=== PATIENT | male | born 1965 | race Caucasian/White ===

== ENCOUNTER 2018-09-01 10:20 | Inpatient (IN) | payer OTHER, MEDICAID ==
[~2018-09-01] VITALS: Ht 160 cm; Wt 71.7 kg
[2018-09-01 11:34] LABS: BASOPHILS % 0.6 % (0.0-2.0); EOSINOPHILS % 0.4 % (0.0-5.0); HEMOGLOBIN. 13.9 g/dL (14.0-18.0); LYMPHOCYTES % 14.9 % (20.0-50.0); MEAN CORPUSCULAR HEMOGLOBIN 27.7 pg (28.0-32.0); MEAN CORPUSCULAR VOLUME 82.2 fL (80.0-94.0); MEAN PLATELET VOLUME 9.3 fl (7.4-10.4); MONOCYTES % 5.3 % (2.0-8.0); NEUTROPHILS % 78.8 % (40.0-76.0); PLATELET 192 x1000/uL (130-400); RED BLOOD CELL COUNT 4.99 mill/uL (4.7-6.1); RED CELL DISTRIBUTION WIDTH 13.1 % (11.6-14.6)
[2018-09-01 11:38] LABS: INR 0.9; PARTIAL THROMBOPLASTIN TIME 26.2 sec (23.4-31.0); PROTHROMBIN TIME 9.4 sec (9.6-11.0)
[2018-09-01 11:39] LABS: CHLORIDE 101 mEq/L (98-107)
[2018-09-01 11:43] LABS: ETHANOL BLOOD < 10 mg/dL
[2018-09-01 11:46] LABS: LDL CHOLESTEROL 203 mg/dL (5-100)
[2018-09-01 11:48] LABS: CREATINE KINASE 226 IU/L (39-308)
[2018-09-01] MEDS ORDERED: ASPIRIN 325MG EC TABLET PO ONE (12:15)
[2018-09-01] MEDS: SODIUM CHLORIDE 0.45% 1,000 ML IV SCH ×4 (12:18→23:34)
[2018-09-01] MEDS ORDERED: ACETAMINOPHEN 325MG TABLET PO PRN (12:30)
[2018-09-01] MEDS ORDERED: HYDROCODONE/ACETAMINOPHEN 5/325MG TABLET PO PRN (12:30)
[2018-09-01] MEDS ORDERED: MAGNESIUM/ALUMINUM HYDROXIDE/SIMETHICONE 30ML UDC PO PRN (12:30)
[2018-09-01] MEDS ORDERED: DIPHENHYDRAMINE 50MG/ML VIAL IV PRN (12:30)
[2018-09-01] MEDS ORDERED: GUAIFENESIN 200MG/10ML SUGAR FREE UDC PO PRN (12:30)
[2018-09-01] MEDS ORDERED: HYDROMORPHONE HCL/PF 2MG/ML CPJ IV PRN (12:30)
[2018-09-01] MEDS ORDERED: IPRATROPIUM/ALBUTEROL 0.5-3(2.5)MG/3ML NEB INH PRN (12:30)
[2018-09-01] MEDS ORDERED: DOCUSATE SODIUM 100MG CAPSULE PO PRN (12:30)
[2018-09-01] MEDS ORDERED: ONDANSETRON HCL 4MG/2ML INJ IV PRN (12:30)
[2018-09-01] MEDS ORDERED: NA PHOS,M-B/NA PHOS,DI-BA ENEMA 118ML PR PRN (12:30)
[2018-09-01 12:53] LABS: BG BASE EXCESS -0.3 mmol/L (-2.0-2.0); BG CARBOXYHEMOGLOBIN 1.1 % (0.5-1.5); BG DEOXYHEMOGLOBIN 3.8 % (0.0-5.0); BG FRACTION INSPIRED OXYGEN 21; BG HCO3 ACT 23.9 mmol/L (22.0-26.0); BG METHEMOGLOBIN 0.1 % (0.0-1.5); BG OXYGEN SATURATION 96.2 % (92.0-98.5); BG PCO2 37.9 mmHg (35.0-45.0); BG PH 7.418 (7.350-7.450); BG PO2 81.1 mmHg (75.0-100.0); BG SAMPLE SITE RIGHT RADIAL; BG TOTAL HEMOGLOBIN 14.3 g/dL (12.0-18.0); BG VENT MODE ROOM AIR
[2018-09-01] MEDS ORDERED: SODIUM CHLORIDE 0.9% 1,000 ML IV ONE (13:24)
[2018-09-01] MEDS ORDERED: INSULIN REGULAR (HUMULIN R) 300UNITS/3ML IV ONE (13:30)
[2018-09-01] MEDS ORDERED: DEXTROSE 50% WATER 50ML SYRINGE IV PRN (15:00)
[2018-09-01] MEDS: BLOOD SUGAR DIAGNOSTIC STRIP TEST SCH ×2 (17:58→21:00)
[2018-09-01] MEDS ORDERED: LEVOFLOXACIN 500MG PREMIX 100 ML IV SCH (18:30)
[2018-09-01] MEDS ORDERED: ENOXAPARIN 40MG/0.4ML SYR SUBCUT NR (18:30)
[2018-09-01 22:00] VITALS: BP 159/95
[2018-09-01 23:19] LABS: CHLORIDE 104 mEq/L (98-107)
[2018-09-01] MEDS: INSULIN LISPRO 100 UNITS/ML SUBCUT SCH (23:36)
[2018-09-02] VITALS (14 sets, daily range): BP systolic 116–161; BP diastolic 74–97
[2018-09-02 03:16] LABS: CLARITY URINE CLEAR (CLEAR); COLOR URINE YELLOW (YELLOW); KETONES URINE NEGATIVE (NEGATIVE); LEUKOCYTE ESTERASE URINE NEGATIVE (NEGATIVE); NITRITE URINE NEGATIVE (NEGATIVE); OCCULT BLOOD URINE TRACE (NEGATIVE); PH URINE 6.5 (4.5-8.0); PROTEIN URINE 3+ (NEGATIVE); SPECIFIC GRAVITY URINE 1.023 (1.005-1.030); UROBILINOGEN URINE 0.2 E.U./dL (0.2-1.0)
[2018-09-02 03:33] LABS: *AMPHETAMINES SCREEN URINE NEGATIVE (NEGATIVE); *BARBITURATES SCREEN URINE NEGATIVE (NEGATIVE); *BENZODIAZEPINES SCREEN URINE NEGATIVE (NEGATIVE); *COCAINE SCREEN URINE NEGATIVE (NEGATIVE)
[2018-09-02 03:34] LABS: CANNABINOID URINE SCREEN NEGATIVE (NEGATIVE); METHADONE URINE SCREEN NEGATIVE (NEGATIVE); OPIATES URINE SCREEN NEGATIVE (NEGATIVE); PHENCYCLIDINE URINE SCREEN NEGATIVE (NEGATIVE)
[2018-09-02 06:47] LABS: BASOPHILS % 0.7 % (0.0-2.0); EOSINOPHILS % 1.7 % (0.0-5.0); HEMATOCRIT. 40.5 % (42.0-52.0); HEMOGLOBIN. 13.8 g/dL (14.0-18.0); LYMPHOCYTES % 21.5 % (20.0-50.0); MEAN CORPUSCULAR HEMOGLOBIN 28.1 pg (28.0-32.0); MEAN CORPUSCULAR VOLUME 82.2 fL (80.0-94.0); MEAN PLATELET VOLUME 9.4 fl (7.4-10.4); MONOCYTES % 6.7 % (2.0-8.0); NEUTROPHILS % 69.4 % (40.0-76.0); PLATELET 191 x1000/uL (130-400); RED BLOOD CELL COUNT 4.92 mill/uL (4.7-6.1); RED CELL DISTRIBUTION WIDTH 13.4 % (11.6-14.6)
[2018-09-02 07:17] LABS: CHLORIDE 105 mEq/L (98-107)
[2018-09-02 07:26] LABS: T4 FREE 1.05 ng/dL (0.76-1.46)
[2018-09-02 07:28] LABS: HDL CHOLESTEROL 37 mg/dL (40-59)
[2018-09-02 07:29] LABS: LDL CHOLESTEROL 207 mg/dL (5-100)
[2018-09-02] MEDS: ASPIRIN 81MG EC TABLET PO SCH (08:59)
[2018-09-02] MEDS: BLOOD SUGAR DIAGNOSTIC STRIP TEST SCH ×4 (10:30→21:38)
[2018-09-02] MEDS: INSULIN LISPRO 100 UNITS/ML SUBCUT SCH ×4 (11:02→22:20)
[2018-09-02 11:49] LABS: T4 FREE 1.06 ng/dL (0.76-1.46)
[2018-09-02] MEDS: CLONIDINE 0.1MG TABLET PO PRN (14:15)
[2018-09-02] MEDS: SODIUM CHLORIDE 0.45% 1,000 ML IV SCH ×2 (16:08→21:40)
[2018-09-02 17:56] LABS: CREATINE KINASE 146 IU/L (39-308)
[2018-09-02 17:58] LABS: CREATINE KINASE MB FRACTION 2.7 ng/mL (0.5-3.6)
[2018-09-02] MEDS: ENOXAPARIN 40MG/0.4ML SYR SUBCUT SCH (18:46)
[2018-09-02] MEDS: ATORVASTATIN CALCIUM 20MG TABLET PO SCH (21:40)
[2018-09-03] VITALS (15 sets, daily range): BP systolic 117–165; BP diastolic 73–94
[2018-09-03] MEDS: LEVOFLOXACIN 500MG PREMIX 100 ML IV SCH (00:57)
[2018-09-03 01:58] LABS: CREATINE KINASE 128 IU/L (39-308)
[2018-09-03] MEDS: ASPIRIN 81MG EC TABLET PO SCH (08:05)
[2018-09-03] MEDS: BLOOD SUGAR DIAGNOSTIC STRIP TEST SCH ×4 (08:10→21:16)
[2018-09-03] MEDS: INSULIN LISPRO 100 UNITS/ML SUBCUT SCH ×4 (08:39→21:17)
[2018-09-03 09:48] LABS: CREATINE KINASE 132 IU/L (39-308); CREATINE KINASE MB FRACTION 2.3 ng/mL (0.5-3.6)
[2018-09-03] MEDS: ENOXAPARIN 40MG/0.4ML SYR SUBCUT SCH (18:01)
[2018-09-03] MEDS: CLONIDINE 0.1MG TABLET PO PRN (18:11)
[2018-09-03] MEDS: SODIUM CHLORIDE 0.45% 1,000 ML IV SCH (19:11)
[2018-09-03] MEDS: LORAZEPAM 2MG/ML CPJ IV PRN (20:09)
[2018-09-03] MEDS: ATORVASTATIN CALCIUM 20MG TABLET PO SCH (20:09)
[2018-09-03] MEDS ORDERED: ATORVASTATIN CALCIUM 20MG TABLET PO NR (21:00)
[2018-09-03] MEDS ORDERED: ATORVASTATIN CALCIUM 20MG TABLET PO SCH (21:00)
[2018-09-04] VITALS (9 sets, daily range): BP systolic 122–171; BP diastolic 74–92
[2018-09-04] MEDS: LEVOFLOXACIN 500MG PREMIX 100 ML IV SCH (00:25)
[2018-09-04 06:26] LABS: BASOPHILS % 0.7 % (0.0-2.0); HEMATOCRIT. 40.1 % (42.0-52.0); HEMOGLOBIN. 13.3 g/dL (14.0-18.0); LYMPHOCYTES % 30.8 % (20.0-50.0); MEAN CORPUSCULAR HEMOGLOBIN 27.3 pg (28.0-32.0); MEAN CORPUSCULAR VOLUME 82.5 fL (80.0-94.0); MEAN PLATELET VOLUME 9.4 fl (7.4-10.4); MONOCYTES % 8.2 % (2.0-8.0); NEUTROPHILS % 58.3 % (40.0-76.0); PLATELET 182 x1000/uL (130-400); RED BLOOD CELL COUNT 4.86 mill/uL (4.7-6.1); RED CELL DISTRIBUTION WIDTH 13.2 % (11.6-14.6)
[2018-09-04 06:29] LABS: CHLORIDE 105 mEq/L (98-107)
[2018-09-04] MEDS: ASPIRIN 81MG EC TABLET PO SCH (08:05)
[2018-09-04] MEDS: CLONIDINE 0.1MG TABLET PO PRN (08:06)
[2018-09-04] MEDS: CLOPIDOGREL 75MG TABLET PO SCH (08:06)
[2018-09-04] MEDS: BLOOD SUGAR DIAGNOSTIC STRIP TEST SCH ×4 (08:10→20:46)
[2018-09-04] MEDS: INSULIN LISPRO 100 UNITS/ML SUBCUT SCH ×4 (08:10→20:55)
[2018-09-04] MEDS: SODIUM CHLORIDE 0.45% 1,000 ML IV SCH (12:31)
[2018-09-04] MEDS: ENOXAPARIN 40MG/0.4ML SYR SUBCUT SCH (17:43)
[2018-09-04] MEDS: ATORVASTATIN CALCIUM 20MG TABLET PO SCH (20:46)
[2018-09-04] MEDS: LEVOFLOXACIN 500MG TABLET PO SCH (22:56)
[2018-09-04] MEDS: LORAZEPAM 2MG/ML CPJ IV PRN (22:56)
[2018-09-05] VITALS (8 sets, daily range): BP systolic 140–181; BP diastolic 82–99
[2018-09-05] MEDS: CLONIDINE 0.1MG TABLET PO PRN ×3 (04:15→22:23)
[2018-09-05 06:53] LABS: BASOPHILS % 0.8 % (0.0-2.0); EOSINOPHILS % 1.9 % (0.0-5.0); HEMATOCRIT. 40.4 % (42.0-52.0); HEMOGLOBIN. 13.9 g/dL (14.0-18.0); MEAN CORPUSCULAR HEMOGLOBIN 28.1 pg (28.0-32.0); MEAN CORPUSCULAR VOLUME 81.5 fL (80.0-94.0); MEAN PLATELET VOLUME 9.1 fl (7.4-10.4); MONOCYTES % 7.4 % (2.0-8.0); NEUTROPHILS % 59.9 % (40.0-76.0); PLATELET 174 x1000/uL (130-400); RED BLOOD CELL COUNT 4.95 mill/uL (4.7-6.1); RED CELL DISTRIBUTION WIDTH 13.4 % (11.6-14.6)
[2018-09-05 07:17] LABS: CHLORIDE 107 mEq/L (98-107)
[2018-09-05] MEDS: BLOOD SUGAR DIAGNOSTIC STRIP TEST SCH ×4 (08:12→21:14)
[2018-09-05] MEDS: CLOPIDOGREL 75MG TABLET PO SCH (08:37)
[2018-09-05] MEDS: ASPIRIN 81MG EC TABLET PO SCH (08:37)
[2018-09-05] MEDS: INSULIN LISPRO 100 UNITS/ML SUBCUT SCH ×4 (08:38→21:17)
[2018-09-05] MEDS: SODIUM CHLORIDE 0.45% 1,000 ML IV SCH (08:42)
[2018-09-05] MEDS: ENOXAPARIN 40MG/0.4ML SYR SUBCUT SCH (20:13)
[2018-09-05] MEDS: ATORVASTATIN CALCIUM 20MG TABLET PO SCH (20:14)
[2018-09-05] MEDS: LEVOFLOXACIN 500MG TABLET PO SCH (22:17)
[2018-09-06] VITALS: BP 157/95
[2018-09-06 04:00] VITALS: BP 163/95
[2018-09-06 05:51] LABS: BASOPHILS % 0.9 % (0.0-2.0); EOSINOPHILS % 1.5 % (0.0-5.0); HEMATOCRIT. 42.9 % (42.0-52.0); HEMOGLOBIN. 14.5 g/dL (14.0-18.0); LYMPHOCYTES % 29.5 % (20.0-50.0); MEAN CORPUSCULAR HEMOGLOBIN 27.9 pg (28.0-32.0); MEAN CORPUSCULAR VOLUME 82.5 fL (80.0-94.0); MEAN PLATELET VOLUME 9.4 fl (7.4-10.4); MONOCYTES % 7.9 % (2.0-8.0); NEUTROPHILS % 60.2 % (40.0-76.0); PLATELET 190 x1000/uL (130-400); RED CELL DISTRIBUTION WIDTH 13.5 % (11.6-14.6)
[2018-09-06 06:12] LABS: CHLORIDE 106 mEq/L (98-107)
[2018-09-06] MEDS: BLOOD SUGAR DIAGNOSTIC STRIP TEST SCH ×4 (07:59→20:47)
[2018-09-06 08:00] VITALS: BP 158/92
[2018-09-06] MEDS: ASPIRIN 81MG EC TABLET PO SCH (08:26)
[2018-09-06] MEDS: CLOPIDOGREL 75MG TABLET PO SCH (08:26)
[2018-09-06] MEDS: INSULIN LISPRO 100 UNITS/ML SUBCUT SCH ×4 (08:26→20:47)
[2018-09-06] MEDS: CLONIDINE 0.1MG TABLET PO PRN ×2 (08:26→18:10)
[2018-09-06 12:04] VITALS: BP 142/86
[2018-09-06 16:00] VITALS: BP 150/84
[2018-09-06] MEDS: ENOXAPARIN 40MG/0.4ML SYR SUBCUT SCH (18:00)
[2018-09-06 20:00] VITALS: BP 144/84
[2018-09-06] MEDS: ATORVASTATIN CALCIUM 20MG TABLET PO SCH (20:46)
[2018-09-06] MEDS: LEVOFLOXACIN 500MG TABLET PO SCH (22:14)
[2018-09-07] VITALS (12 sets, daily range): BP systolic 112–157; BP diastolic 48–80
[2018-09-07] MEDS: BLOOD SUGAR DIAGNOSTIC STRIP TEST SCH ×4 (07:58→22:48)
[2018-09-07] MEDS: ASPIRIN 81MG EC TABLET PO SCH (08:22)
[2018-09-07] MEDS: CLOPIDOGREL 75MG TABLET PO SCH (08:22)
[2018-09-07] MEDS: INSULIN LISPRO 100 UNITS/ML SUBCUT SCH ×4 (08:23→22:46)
[2018-09-07] MEDS: ENOXAPARIN 40MG/0.4ML SYR SUBCUT SCH (18:15)
[2018-09-07] MEDS: ATORVASTATIN CALCIUM 20MG TABLET PO SCH (22:30)
[2018-09-07] MEDS: LEVOFLOXACIN 500MG TABLET PO SCH (22:37)
[2018-09-08] VITALS (9 sets, daily range): BP systolic 137–182; BP diastolic 62–98
[2018-09-08] MEDS: CLONIDINE 0.1MG TABLET PO PRN ×2 (04:44→16:34)
[2018-09-08] MEDS: BLOOD SUGAR DIAGNOSTIC STRIP TEST SCH ×4 (06:01→21:30)
[2018-09-08] MEDS: INSULIN LISPRO 100 UNITS/ML SUBCUT SCH ×4 (06:21→21:00)
[2018-09-08] MEDS: ASPIRIN 81MG EC TABLET PO SCH (08:23)
[2018-09-08] MEDS: CLOPIDOGREL 75MG TABLET PO SCH (08:23)
[2018-09-08] MEDS: ENOXAPARIN 40MG/0.4ML SYR SUBCUT SCH (17:50)
[2018-09-08] MEDS: ATORVASTATIN CALCIUM 20MG TABLET PO SCH (21:09)
[2018-09-09] VITALS: BP 148/86
[2018-09-09] MEDS: LEVOFLOXACIN 500MG TABLET PO SCH ×2 (00:03→21:58)
[2018-09-09 04:00] VITALS: BP 183/97
[2018-09-09] MEDS: BLOOD SUGAR DIAGNOSTIC STRIP TEST SCH ×4 (06:43→21:58)
[2018-09-09] MEDS: INSULIN LISPRO 100 UNITS/ML SUBCUT SCH ×4 (07:39→22:00)
[2018-09-09 08:00] VITALS: BP 163/98
[2018-09-09] MEDS: CLONIDINE 0.1MG TABLET PO PRN (08:24)
[2018-09-09] MEDS: CLOPIDOGREL 75MG TABLET PO SCH (08:24)
[2018-09-09] MEDS: ASPIRIN 81MG EC TABLET PO SCH (08:24)
[2018-09-09 12:11] VITALS: BP 173/93
[2018-09-09] MEDS ORDERED: CLONIDINE 0.2MG TABLET PO PRN (13:30)
[2018-09-09] MEDS: AMLODIPINE 10MG TABLET PO SCH (13:49)
[2018-09-09 16:00] VITALS: BP 151/88
[2018-09-09] MEDS: ENOXAPARIN 40MG/0.4ML SYR SUBCUT SCH (17:53)
[2018-09-09 20:00] VITALS: BP 130/78
[2018-09-09] MEDS: ATORVASTATIN CALCIUM 20MG TABLET PO SCH (21:58)
[2018-09-10] VITALS: BP 124/77
[2018-09-10 04:00] VITALS: BP 123/75
[2018-09-10] MEDS: INSULIN LISPRO 100 UNITS/ML SUBCUT SCH ×4 (06:39→21:02)
[2018-09-10] MEDS: BLOOD SUGAR DIAGNOSTIC STRIP TEST SCH ×4 (06:40→20:59)
[2018-09-10 08:00] VITALS: BP 130/74
[2018-09-10] MEDS: CLOPIDOGREL 75MG TABLET PO SCH (09:40)
[2018-09-10] MEDS: ASPIRIN 81MG EC TABLET PO SCH (09:40)
[2018-09-10] MEDS: AMLODIPINE 10MG TABLET PO SCH (09:40)
[2018-09-10 12:00] VITALS: BP 98/59
[2018-09-10 16:00] VITALS: BP 142/78
[2018-09-10] MEDS: ENOXAPARIN 40MG/0.4ML SYR SUBCUT SCH (17:48)
[2018-09-10 20:00] VITALS: BP 111/55
[2018-09-10] MEDS: ATORVASTATIN CALCIUM 20MG TABLET PO SCH (20:59)
[2018-09-11] VITALS: BP 108/48
[2018-09-11 05:30] VITALS: BP 132/78
[2018-09-11] MEDS: BLOOD SUGAR DIAGNOSTIC STRIP TEST SCH ×4 (07:01→21:00)
[2018-09-11] MEDS: INSULIN LISPRO 100 UNITS/ML SUBCUT SCH ×4 (07:01→22:37)
[2018-09-11 08:00] VITALS: BP 136/72
[2018-09-11] MEDS: AMLODIPINE 10MG TABLET PO SCH (08:45)
[2018-09-11] MEDS: ASPIRIN 81MG EC TABLET PO SCH (08:45)
[2018-09-11] MEDS: CLOPIDOGREL 75MG TABLET PO SCH (08:45)
[2018-09-11 12:00] VITALS: BP 134/78
[2018-09-11 16:00] VITALS: BP 128/68
[2018-09-11] MEDS: ENOXAPARIN 40MG/0.4ML SYR SUBCUT SCH (17:47)
[2018-09-11 20:00] VITALS: BP 122/73
[2018-09-11] MEDS: ATORVASTATIN CALCIUM 20MG TABLET PO SCH (22:28)
[2018-09-12] VITALS: BP 132/76
[2018-09-12 04:00] VITALS: BP 136/78
[2018-09-12] MEDS: BLOOD SUGAR DIAGNOSTIC STRIP TEST SCH ×4 (07:20→21:00)
[2018-09-12] MEDS: INSULIN LISPRO 100 UNITS/ML SUBCUT SCH ×5 (07:50→21:29)
[2018-09-12 08:00] VITALS: BP 148/84
[2018-09-12] MEDS: ASPIRIN 81MG EC TABLET PO SCH (09:37)
[2018-09-12] MEDS: AMLODIPINE 10MG TABLET PO SCH (09:38)
[2018-09-12] MEDS: CLOPIDOGREL 75MG TABLET PO SCH (09:38)
[2018-09-12 12:00] VITALS: BP 134/74
[2018-09-12 16:00] VITALS: BP 127/76
[2018-09-12] MEDS: ENOXAPARIN 40MG/0.4ML SYR SUBCUT SCH (18:34)
[2018-09-12 20:00] VITALS: BP 107/68
[2018-09-12] MEDS: ATORVASTATIN CALCIUM 20MG TABLET PO SCH (21:25)
[2018-09-13] VITALS: BP 107/59
[2018-09-13 04:00] VITALS: BP 130/76
[2018-09-13] MEDS: BLOOD SUGAR DIAGNOSTIC STRIP TEST SCH ×4 (07:20→21:01)
[2018-09-13 08:00] VITALS: BP 142/78
[2018-09-13] MEDS: INSULIN LISPRO 100 UNITS/ML SUBCUT SCH ×4 (08:33→21:07)
[2018-09-13] MEDS: ASPIRIN 81MG EC TABLET PO SCH (08:34)
[2018-09-13] MEDS: CLOPIDOGREL 75MG TABLET PO SCH (08:34)
[2018-09-13] MEDS: AMLODIPINE 10MG TABLET PO SCH (08:35)
[2018-09-13 11:46] VITALS: BP 135/78
[2018-09-13 16:00] VITALS: BP 134/75
[2018-09-13] MEDS: ENOXAPARIN 40MG/0.4ML SYR SUBCUT SCH (17:59)
[2018-09-13 20:00] VITALS: BP 117/74
[2018-09-13] MEDS: ATORVASTATIN CALCIUM 20MG TABLET PO SCH (20:43)
[2018-09-14] VITALS: BP 102/63
[2018-09-14 04:00] VITALS: BP 125/72
[2018-09-14] MEDS: BLOOD SUGAR DIAGNOSTIC STRIP TEST SCH ×4 (06:40→20:57)
[2018-09-14 08:00] VITALS: BP 123/72
[2018-09-14] MEDS: INSULIN LISPRO 100 UNITS/ML SUBCUT SCH ×4 (08:47→21:03)
[2018-09-14] MEDS: ASPIRIN 81MG EC TABLET PO SCH (09:07)
[2018-09-14] MEDS: CLOPIDOGREL 75MG TABLET PO SCH (09:07)
[2018-09-14] MEDS: AMLODIPINE 10MG TABLET PO SCH (09:07)
[2018-09-14 12:00] VITALS: BP 118/69
[2018-09-14 16:00] VITALS: BP 109/69
[2018-09-14] MEDS: ENOXAPARIN 40MG/0.4ML SYR SUBCUT SCH (18:07)
[2018-09-14 20:00] VITALS: BP 124/74
[2018-09-14] MEDS: ATORVASTATIN CALCIUM 20MG TABLET PO SCH (20:57)
[2018-09-15] VITALS: BP 120/77
[2018-09-15 04:00] VITALS: BP 120/73
[2018-09-15 08:00] VITALS: BP 142/78
[2018-09-15] MEDS: INSULIN LISPRO 100 UNITS/ML SUBCUT SCH ×4 (08:10→20:53)
[2018-09-15] MEDS: ASPIRIN 81MG EC TABLET PO SCH (08:11)
[2018-09-15] MEDS: CLOPIDOGREL 75MG TABLET PO SCH (08:11)
[2018-09-15] MEDS: AMLODIPINE 10MG TABLET PO SCH (08:12)
[2018-09-15] MEDS: BLOOD SUGAR DIAGNOSTIC STRIP TEST SCH ×4 (08:14→20:51)
[2018-09-15 12:00] VITALS: BP 117/72
[2018-09-15 16:18] VITALS: BP 117/72
[2018-09-15] MEDS: ENOXAPARIN 40MG/0.4ML SYR SUBCUT SCH (18:38)
[2018-09-15 20:00] VITALS: BP 118/64
[2018-09-15] MEDS: ATORVASTATIN CALCIUM 20MG TABLET PO SCH (20:51)
[2018-09-16] VITALS: BP 110/66
[2018-09-16 04:00] VITALS: BP 108/68
[2018-09-16] MEDS: BLOOD SUGAR DIAGNOSTIC STRIP TEST SCH ×2 (06:09→12:46)
[2018-09-16 08:00] VITALS: BP 116/69
[2018-09-16] MEDS: CLOPIDOGREL 75MG TABLET PO SCH (08:20)
[2018-09-16] MEDS: ASPIRIN 81MG EC TABLET PO SCH (08:20)
[2018-09-16] MEDS: AMLODIPINE 10MG TABLET PO SCH (08:20)
[2018-09-16] MEDS: INSULIN LISPRO 100 UNITS/ML SUBCUT SCH ×2 (08:21→12:51)
[2018-09-16 11:32] VITALS: BP 113/64
[2018-09-16 12:00] VITALS: BP 139/72
== END 2018-09-16 15:28 | DRG 26 ==
LOC: ER 10:20 → 5EST 12:20 → EDBEDREQ 12:23 → ENRESERV 16:48 → 5WST 09-08 00:55 → 6EST 09-11 11:00
PROVIDERS: ADMIT Internal Medicine; ATTEND Internal Medicine
PROC: 0KBV0ZZ Excision of Right Foot Muscle, Open Approach (ICD-10-PCS; principal; 2018-09-04)
PROC: 0KBV0ZZ Excision of Right Foot Muscle, Open Approach (ICD-10-PCS; 2018-09-12)
DX: I63.9 Cerebral infarction, unspecified (principal); G93.40 Encephalopathy, unspecified; E11.42 Type 2 diabetes mellitus with diabetic polyneuropathy; E11.621 Type 2 diabetes mellitus with foot ulcer; G90.8 Other disorders of autonomic nervous system; L97.519 Non-pressure chronic ulcer of other part of right foot with unspecified severity; E11.65 Type 2 diabetes mellitus with hyperglycemia; E78.5 Hyperlipidemia, unspecified; I10 Essential (primary) hypertension; E78.00 Pure hypercholesterolemia, unspecified; R26.9 Unspecified abnormalities of gait and mobility; E11.622 Type 2 diabetes mellitus with other skin ulcer; Z79.4 Long term (current) use of insulin; Z89.429 Acquired absence of other toe(s), unspecified side; Z91.81 History of falling; Z68.28 Body mass index [BMI] 28.0-28.9, adult; E44.1 Mild protein-calorie malnutrition
CPT/HCPCS: 36415; 36600; 70551; 71045; 74018; 80048; 80061; 80305; 80320; 82375; 82465; 82550; 82553; 82805; 82962; 83036; 83721; 83735; 83880; 84439; 84443; 84484; 85379; 92523; 93005; 93306; 93880; 93970; 97112; 97116; 97162; 97166; 97530; 97535; 99291; J1650; J1815; J1956; J2060; J7030; G0480

== ENCOUNTER 2019-10-02 14:28 | Inpatient (IN) | payer MEDICAID ==
[~2019-10-02] VITALS: Ht 175.3 cm; Wt 76.3 kg
[~2019-10-02 14:28] MED LIST: AMLO10TA4 PO; ASPI-1497 PO; ATOR20TA65 PO; CLOP75TA33 PO; HJ10 IJ; METF-416 PO
[2019-10-02 17:23] LABS: CHLORIDE 103 mEq/L (98-107)
[2019-10-02 17:26] LABS: BASOPHILS % 0.4 % (0.0-2.0); EOSINOPHILS % 1.2 % (0.0-5.0); HEMATOCRIT. 33.8 % (42.0-52.0); HEMOGLOBIN. 11.6 g/dL (14.0-18.0); LYMPHOCYTES % 12.9 % (20.0-50.0); MEAN CORPUSCULAR HEMOGLOBIN 27.2 pg (28.0-32.0); MEAN CORPUSCULAR VOLUME 79.1 fL (80.0-94.0); MEAN PLATELET VOLUME 7.1 fl (7.4-10.4); MONOCYTES % 11.4 % (2.0-8.0); NEUTROPHILS % 74.1 % (40.0-76.0); PLATELET 514 x1000/uL (130-400); RED BLOOD CELL COUNT 4.28 mill/uL (4.7-6.1); RED CELL DISTRIBUTION WIDTH 14.5 % (11.6-14.6)
[2019-10-03] MEDS ORDERED: BENZONATATE 100MG CAPSULE PO PRN (08:45)
[2019-10-03] MEDS ORDERED: ACETAMINOPHEN 325MG TABLET PO PRN (08:45)
[2019-10-03 09:45] VITALS: BP_SYST 156; BP_SYST 159; BP_DIAS 86
[2019-10-03 10:17] VITALS: BP 159/86
[2019-10-03] MEDS: CLOPIDOGREL 75MG TABLET PO SCH (10:18)
[2019-10-03] MEDS: AZITHROMYCIN 500 MG TABLET PO SCH (10:18)
[2019-10-03] MEDS: ENOXAPARIN 40MG/0.4ML SYR SUBCUT SCH (10:19)
[2019-10-03] MEDS ORDERED: CEFTRIAXONE 1 G PREMIX 50 ML IV SCH (11:00)
[2019-10-03] MEDS ORDERED: DEXTROSE 50% WATER 50ML SYRINGE IV PRN (12:45)
[2019-10-03 13:10] VITALS: BP 144/85
[2019-10-03] MEDS: BLOOD SUGAR DIAGNOSTIC STRIP TEST SCH ×2 (16:52→20:32)
[2019-10-03] MEDS: INSULIN LISPRO 100 UNITS/ML SUBCUT SCH ×2 (17:34→20:43)
[2019-10-03 18:11] VITALS: BP 147/84
[2019-10-03 20:00] VITALS: BP 137/81
[2019-10-03] MEDS: ATORVASTATIN CALCIUM 20MG TABLET PO SCH (20:42)
[2019-10-03] MEDS: AMLODIPINE 5MG TABLET PO SCH (20:42)
[2019-10-04] VITALS: BP 137/82
[2019-10-04 04:00] VITALS: BP 134/83
[2019-10-04] MEDS: BLOOD SUGAR DIAGNOSTIC STRIP TEST SCH ×4 (06:47→21:14)
[2019-10-04] MEDS: INSULIN LISPRO 100 UNITS/ML SUBCUT SCH ×4 (07:10→21:16)
[2019-10-04] MEDS: AZITHROMYCIN 500 MG TABLET PO SCH (08:17)
[2019-10-04] MEDS: CLOPIDOGREL 75MG TABLET PO SCH (08:17)
[2019-10-04] MEDS: ASPIRIN 81MG TABLET PO SCH (08:17)
[2019-10-04] MEDS: AMLODIPINE 5MG TABLET PO SCH ×2 (08:17→20:16)
[2019-10-04] MEDS: ENOXAPARIN 40MG/0.4ML SYR SUBCUT SCH (08:18)
[2019-10-04 12:00] VITALS: BP 156/87
[2019-10-04] MEDS: CEFTRIAXONE 1 G PREMIX 50 ML IV SCH (14:36)
[2019-10-04 16:00] VITALS: BP 148/76
[2019-10-04 20:00] VITALS: BP 149/85
[2019-10-04] MEDS: ATORVASTATIN CALCIUM 20MG TABLET PO SCH (20:16)
[2019-10-05] VITALS: BP 127/79
[2019-10-05 04:00] VITALS: BP 144/85
[2019-10-05] MEDS: BLOOD SUGAR DIAGNOSTIC STRIP TEST SCH ×4 (06:04→20:49)
[2019-10-05] MEDS: INSULIN LISPRO 100 UNITS/ML SUBCUT SCH ×5 (07:10→20:50)
[2019-10-05 07:58] VITALS: BP 129/84
[2019-10-05] MEDS: ENOXAPARIN 40MG/0.4ML SYR SUBCUT SCH (08:47)
[2019-10-05] MEDS: AMLODIPINE 5MG TABLET PO SCH ×2 (08:47→20:49)
[2019-10-05] MEDS: ASPIRIN 81MG TABLET PO SCH (08:47)
[2019-10-05] MEDS: AZITHROMYCIN 500 MG TABLET PO SCH (08:47)
[2019-10-05] MEDS: CLOPIDOGREL 75MG TABLET PO SCH (08:47)
[2019-10-05 12:00] VITALS: BP 130/79
[2019-10-05] MEDS: CEFTRIAXONE 1 G PREMIX 50 ML IV SCH (13:20)
[2019-10-05 15:57] VITALS: BP 130/81
[2019-10-05 20:00] VITALS: BP 138/83
[2019-10-05] MEDS: ATORVASTATIN CALCIUM 20MG TABLET PO SCH (20:48)
[2019-10-06] VITALS: BP 136/86
[2019-10-06 04:00] VITALS: BP 136/81
[2019-10-06] MEDS: BLOOD SUGAR DIAGNOSTIC STRIP TEST SCH ×4 (06:18→21:16)
[2019-10-06] MEDS: INSULIN LISPRO 100 UNITS/ML SUBCUT SCH ×4 (06:18→21:15)
[2019-10-06 07:50] VITALS: BP 146/86
[2019-10-06] MEDS: ENOXAPARIN 40MG/0.4ML SYR SUBCUT SCH (08:23)
[2019-10-06] MEDS: ASPIRIN 81MG TABLET PO SCH (08:24)
[2019-10-06] MEDS: AMLODIPINE 5MG TABLET PO SCH ×2 (08:24→21:16)
[2019-10-06] MEDS: CLOPIDOGREL 75MG TABLET PO SCH (08:24)
[2019-10-06] MEDS: AZITHROMYCIN 500 MG TABLET PO SCH (08:24)
[2019-10-06 11:43] VITALS: BP 144/87
[2019-10-06] MEDS: CEFTRIAXONE 1 G PREMIX 50 ML IV SCH (14:10)
[2019-10-06 15:52] VITALS: BP 132/84
[2019-10-06] MEDS: DOCUSATE SODIUM 250MG CAPSULE PO SCH (17:40)
[2019-10-06 20:00] VITALS: BP 148/86
[2019-10-06] MEDS: ATORVASTATIN CALCIUM 20MG TABLET PO SCH (21:16)
[2019-10-07 00:04] VITALS: BP 133/86
[2019-10-07 04:00] VITALS: BP 138/85
[2019-10-07] MEDS: BLOOD SUGAR DIAGNOSTIC STRIP TEST SCH ×4 (05:48→21:00)
[2019-10-07] MEDS: INSULIN LISPRO 100 UNITS/ML SUBCUT SCH ×4 (06:27→21:00)
[2019-10-07 07:36] VITALS: BP 132/86
[2019-10-07] MEDS: DOCUSATE SODIUM 250MG CAPSULE PO SCH ×2 (08:18→16:59)
[2019-10-07] MEDS: ASPIRIN 81MG TABLET PO SCH (08:18)
[2019-10-07] MEDS: AZITHROMYCIN 500 MG TABLET PO SCH (08:18)
[2019-10-07] MEDS: ENOXAPARIN 40MG/0.4ML SYR SUBCUT SCH (08:18)
[2019-10-07] MEDS: CLOPIDOGREL 75MG TABLET PO SCH (08:18)
[2019-10-07] MEDS: AMLODIPINE 5MG TABLET PO SCH ×2 (08:18→21:42)
[2019-10-07 11:57] VITALS: BP 126/80
[2019-10-07] MEDS: CEFTRIAXONE 1 G PREMIX 50 ML IV SCH (13:33)
[2019-10-07 15:48] VITALS: BP 128/77
[2019-10-07 20:00] VITALS: BP 145/86
[2019-10-07] MEDS: ATORVASTATIN CALCIUM 20MG TABLET PO SCH (21:42)
[2019-10-07] MEDS: LACTULOSE 20G/30ML UDC PO PRN (21:43)
[2019-10-08 00:10] VITALS: BP 135/72
[2019-10-08 04:00] VITALS: BP 140/73
[2019-10-08] MEDS: INSULIN LISPRO 100 UNITS/ML SUBCUT SCH ×4 (06:19→20:52)
[2019-10-08] MEDS: BLOOD SUGAR DIAGNOSTIC STRIP TEST SCH ×4 (06:20→20:51)
[2019-10-08 08:00] VITALS: BP 145/72
[2019-10-08] MEDS: ENOXAPARIN 40MG/0.4ML SYR SUBCUT SCH (09:42)
[2019-10-08] MEDS: CLOPIDOGREL 75MG TABLET PO SCH (09:42)
[2019-10-08] MEDS: AZITHROMYCIN 500 MG TABLET PO SCH (09:42)
[2019-10-08] MEDS: ASPIRIN 81MG TABLET PO SCH (09:43)
[2019-10-08] MEDS: DOCUSATE SODIUM 250MG CAPSULE PO SCH ×2 (09:43→17:00)
[2019-10-08] MEDS: AMLODIPINE 5MG TABLET PO SCH ×2 (09:43→20:51)
[2019-10-08 12:00] VITALS: BP 120/70
[2019-10-08] MEDS: CEFTRIAXONE 1 G PREMIX 50 ML IV SCH (13:40)
[2019-10-08 16:00] VITALS: BP 128/80
[2019-10-08 20:00] VITALS: BP 148/88
[2019-10-08] MEDS: ATORVASTATIN CALCIUM 20MG TABLET PO SCH (20:50)
[2019-10-08] MEDS: LACTULOSE 20G/30ML UDC PO PRN (20:51)
[2019-10-09] VITALS: BP 144/80
[2019-10-09 04:00] VITALS: BP 131/86
[2019-10-09] MEDS: INSULIN LISPRO 100 UNITS/ML SUBCUT SCH ×4 (06:41→22:40)
[2019-10-09] MEDS: BLOOD SUGAR DIAGNOSTIC STRIP TEST SCH ×4 (06:41→20:59)
[2019-10-09 08:00] VITALS: BP 137/72
[2019-10-09] MEDS: DOCUSATE SODIUM 250MG CAPSULE PO SCH ×2 (09:46→17:00)
[2019-10-09] MEDS: ASPIRIN 81MG TABLET PO SCH (09:46)
[2019-10-09] MEDS: ENOXAPARIN 40MG/0.4ML SYR SUBCUT SCH (09:46)
[2019-10-09] MEDS: AMLODIPINE 5MG TABLET PO SCH ×2 (09:46→20:59)
[2019-10-09] MEDS: AZITHROMYCIN 500 MG TABLET PO SCH (09:46)
[2019-10-09] MEDS: CLOPIDOGREL 75MG TABLET PO SCH (09:46)
[2019-10-09 12:00] VITALS: BP 120/78
[2019-10-09 16:00] VITALS: BP 133/82
[2019-10-09 20:00] VITALS: BP 122/81
[2019-10-09] MEDS: ATORVASTATIN CALCIUM 20MG TABLET PO SCH (20:59)
[2019-10-09] MEDS: INSULIN GLARGINE UD 100 UNITS/ML SYR SUBCUT SCH (22:57)
[2019-10-10] VITALS (7 sets, daily range): BP systolic 119–137; BP diastolic 75–84
[2019-10-10] MEDS: BLOOD SUGAR DIAGNOSTIC STRIP TEST SCH ×3 (06:56→16:40)
[2019-10-10] MEDS: INSULIN LISPRO 100 UNITS/ML SUBCUT SCH ×3 (06:56→18:13)
[2019-10-10] MEDS: ASPIRIN 81MG TABLET PO SCH (10:03)
[2019-10-10] MEDS: ENOXAPARIN 40MG/0.4ML SYR SUBCUT SCH (10:03)
[2019-10-10] MEDS: DOCUSATE SODIUM 250MG CAPSULE PO SCH ×2 (10:03→18:12)
[2019-10-10] MEDS: AZITHROMYCIN 500 MG TABLET PO SCH (10:03)
[2019-10-10] MEDS: CLOPIDOGREL 75MG TABLET PO SCH (10:04)
[2019-10-10] MEDS: AMLODIPINE 5MG TABLET PO SCH (10:04)
[2019-10-10] MEDS: INSULIN GLARGINE UD 100 UNITS/ML SYR SUBCUT SCH (14:10)
== END 2019-10-10 20:50 | DRG 720 ==
LOC: ER 14:28 → 7EST 20:24 → EDBEDREQ 20:29 → EDBEDREQTM 20:29 → ENRESERV 10-03 08:50
PROVIDERS: ADMIT Internal Medicine; ATTEND Internal Medicine
DX: A41.89 Other specified sepsis (principal); U07.1 COVID-19; J96.00 Acute respiratory failure, unspecified whether with hypoxia or hypercapnia; E43 Unspecified severe protein-calorie malnutrition; E11.9 Type 2 diabetes mellitus without complications; D64.9 Anemia, unspecified; B97.89 Other viral agents as the cause of diseases classified elsewhere; J12.89 Other viral pneumonia; E78.00 Pure hypercholesterolemia, unspecified; I10 Essential (primary) hypertension; E78.5 Hyperlipidemia, unspecified; Z86.73 Personal history of transient ischemic attack (TIA), and cerebral infarction without residual deficits; Z68.24 Body mass index [BMI] 24.0-24.9, adult; Z79.82 Long term (current) use of aspirin; Z79.891 Long term (current) use of opiate analgesic; Z79.899 Other long term (current) drug therapy; Z79.84 Long term (current) use of oral hypoglycemic drugs
CPT/HCPCS: 36415; 71045; 80053; 82728; 82962; 83036; 83615; 85025; 85379; 86140; 87635; 99285; J0696; J1650; J1815; U0003-CS

== ENCOUNTER 2021-01-22 17:40 | Inpatient (IN) | payer MEDICAID ==
[~2021-01-22] VITALS: Ht 167.6 cm; Wt 82.2 kg
[~2021-01-22 17:40] MED LIST changes: -HJ10 IJ
[2021-01-22 19:38] LABS: HEMATOCRIT. 34.4 % (42.0-52.0); HEMOGLOBIN. 11.9 g/dL (14.0-18.0); MEAN CORPUSCULAR HEMOGLOBIN 27.6 pg (28.0-32.0); MEAN CORPUSCULAR VOLUME 79.9 fL (80.0-94.0); MEAN PLATELET VOLUME 8.7 fl (7.4-10.4); PLATELET 221 x1000/uL (130-400); RED BLOOD CELL COUNT 4.31 mill/uL (4.7-6.1); RED CELL DISTRIBUTION WIDTH 13.4 % (11.6-14.6)
[2021-01-22 19:48] LABS: PARTIAL THROMBOPLASTIN TIME 28.2 sec (23.4-31.0); PROTHROMBIN TIME 10.7 sec (9.6-11.0)
[2021-01-22 19:54] LABS: CHLORIDE 96 mEq/L (98-107)
[2021-01-22 21:12] LABS: PLATELET ESTIMATE NORMAL
[2021-01-22] MEDS ORDERED: AZITHROMYCIN 500 MG in DEXT 5% WATER 250 ML IV SCH (22:15)
[2021-01-22] MEDS ORDERED: CEFTRIAXONE 1 G PREMIX 50 ML IV ONE (22:15)
[2021-01-22] MEDS ORDERED: DEXAMETHASONE 10 MG/ML VIAL IV ONE (22:15)
[2021-01-22] MEDS ORDERED: MORPHINE SULFATE 2 MG/ML CPJ (NOT FOR IM USE) IV PRN (23:45)
[2021-01-22] MEDS ORDERED: MAGNESIUM/ALUMINUM HYDROXIDE/SIMETHICONE 30ML UDC PO PRN (23:45)
[2021-01-22] MEDS ORDERED: IPRATROPIUM/ALBUTEROL 0.5-3(2.5)MG/3ML NEB NEB PRN (23:45)
[2021-01-22] MEDS ORDERED: ACETAMINOPHEN 325MG TABLET PO PRN (23:45)
[2021-01-22] MEDS ORDERED: NALOXONE HCL 0.4MG/ML VIAL IV PRN (23:45)
[2021-01-22] MEDS ORDERED: DOCUSATE SODIUM 100MG CAPSULE PO PRN (23:45)
[2021-01-23] MEDS: SODIUM CHLORIDE 0.9% 1,000 ML IV SCH ×2 (01:59→12:59)
[2021-01-23] MEDS: ENOXAPARIN 40MG/0.4ML SYR SUBCUT SCH ×2 (01:59→21:21)
[2021-01-23 05:11] LABS: HDL CHOLESTEROL 41 mg/dL (40-59); LDL CHOLESTEROL 79 mg/dL (5-100)
[2021-01-23 05:12] LABS: CREATINE KINASE 73 IU/L (39-308)
[2021-01-23 05:13] LABS: CREATINE KINASE MB FRACTION < 1.0 ng/mL (0.5-3.6)
[2021-01-23 10:00] VITALS: BP 157/82
[2021-01-23 12:00] VITALS: BP 163/90
[2021-01-23] MEDS: CLONIDINE 0.1MG TABLET PO PRN (12:58)
[2021-01-23 16:00] VITALS: BP 140/82
[2021-01-23] MEDS: METFORMIN HCL 500MG TABLET PO SCH (17:17)
[2021-01-23] MEDS: AMLODIPINE 10MG TABLET PO SCH (17:18)
[2021-01-23 20:00] VITALS: BP 148/86
[2021-01-23 20:18] LABS: CREATINE KINASE 122 IU/L (39-308)
[2021-01-23 20:19] LABS: CREATINE KINASE MB FRACTION 1.8 ng/mL (0.5-3.6)
[2021-01-23] MEDS ORDERED: ATORVASTATIN CALCIUM 20MG TABLET PO SCH (21:00)
[2021-01-23] MEDS ORDERED: INSULIN GLARGINE UD 100 UNITS/ML SYR SUBCUT SCH (22:00)
[2021-01-24] VITALS: BP 127/70
[2021-01-24 04:00] VITALS: BP 145/79
[2021-01-24] MEDS: SODIUM CHLORIDE 0.9% 1,000 ML IV SCH ×2 (07:04→15:34)
[2021-01-24 08:00] VITALS: BP 152/78
[2021-01-24] MEDS: AMLODIPINE 10MG TABLET PO SCH (08:44)
[2021-01-24] MEDS: METFORMIN HCL 500MG TABLET PO SCH ×2 (08:44→17:48)
[2021-01-24 12:00] VITALS: BP 160/82
[2021-01-24] MEDS: CLONIDINE 0.1MG TABLET PO PRN (12:39)
[2021-01-24 16:00] VITALS: BP 154/84
[2021-01-24] MEDS ORDERED: AZITHROMYCIN 500 MG in DEXT 5% WATER 250 ML IV SCH (16:00)
[2021-01-24] MEDS: ONDANSETRON HCL 4MG/2ML INJ IV PRN (16:25)
[2021-01-24 20:00] VITALS: BP 148/84
[2021-01-24] MEDS: ATORVASTATIN CALCIUM 40MG TABLET PO SCH (21:18)
[2021-01-24] MEDS: HYDRALAZINE HCL 25MG TABLET PO SCH (21:18)
[2021-01-24] MEDS: ENOXAPARIN 40MG/0.4ML SYR SUBCUT SCH (21:19)
[2021-01-25] VITALS: BP 124/83
[2021-01-25] MEDS: ONDANSETRON HCL 4MG/2ML INJ IV PRN (00:02)
[2021-01-25] MEDS: INSULIN GLARGINE UD 100 UNITS/ML SYR SUBCUT SCH ×2 (00:02→22:00)
[2021-01-25] MEDS: HYDROCODONE/ACETAMINOPHEN 5/325MG TABLET PO PRN ×2 (00:06→22:06)
[2021-01-25 04:00] VITALS: BP 156/85
[2021-01-25] MEDS: SODIUM CHLORIDE 0.9% 1,000 ML IV SCH ×2 (06:07→17:54)
[2021-01-25] MEDS: HYDRALAZINE HCL 25MG TABLET PO SCH ×3 (06:08→21:51)
[2021-01-25 08:00] VITALS: BP 154/82
[2021-01-25 08:16] LABS: BASOPHILS % 0.4 % (0.0-2.0); EOSINOPHILS % 0.5 % (0.0-5.0); HEMATOCRIT. 31.9 % (42.0-52.0); HEMOGLOBIN. 10.8 g/dL (14.0-18.0); LYMPHOCYTES % 14.1 % (20.0-50.0); MEAN CORPUSCULAR VOLUME 79.7 fL (80.0-94.0); MEAN PLATELET VOLUME 8.7 fl (7.4-10.4); MONOCYTES % 14.1 % (2.0-8.0); NEUTROPHILS % 70.9 % (40.0-76.0); PLATELET 240 x1000/uL (130-400); RED CELL DISTRIBUTION WIDTH 13.6 % (11.6-14.6)
[2021-01-25 08:17] LABS: CHLORIDE 99 mEq/L (98-107)
[2021-01-25] MEDS: METFORMIN HCL 500MG TABLET PO SCH ×2 (08:43→17:54)
[2021-01-25] MEDS: AMLODIPINE 10MG TABLET PO SCH (08:44)
[2021-01-25 12:00] VITALS: BP 114/72
[2021-01-25] MEDS ORDERED: DEXTROSE 50% WATER 50ML SYRINGE IV PRN (13:30)
[2021-01-25] MEDS: AZITHROMYCIN 500 MG TABLET PO SCH (14:34)
[2021-01-25 16:00] VITALS: BP 128/75
[2021-01-25] MEDS: BLOOD SUGAR DIAGNOSTIC STRIP TEST SCH ×2 (17:59→21:55)
[2021-01-25] MEDS: INSULIN LISPRO 100 UNITS/ML SUBCUT SCH ×2 (18:06→22:00)
[2021-01-25 20:00] VITALS: BP 136/80
[2021-01-25] MEDS: ATORVASTATIN CALCIUM 40MG TABLET PO SCH (21:51)
[2021-01-25] MEDS: ENOXAPARIN 40MG/0.4ML SYR SUBCUT SCH (21:52)
[2021-01-26] VITALS: BP 157/87
[2021-01-26 04:00] VITALS: BP 163/84
[2021-01-26 06:15] LABS: BASOPHILS % 0.5 % (0.0-2.0); HEMATOCRIT. 30.2 % (42.0-52.0); HEMOGLOBIN. 10.3 g/dL (14.0-18.0); LYMPHOCYTES % 15.7 % (20.0-50.0); MEAN CORPUSCULAR HEMOGLOBIN 26.9 pg (28.0-32.0); MEAN CORPUSCULAR VOLUME 78.9 fL (80.0-94.0); MEAN PLATELET VOLUME 8.4 fl (7.4-10.4); MONOCYTES % 11.1 % (2.0-8.0); NEUTROPHILS % 71.7 % (40.0-76.0); PLATELET 238 x1000/uL (130-400); RED BLOOD CELL COUNT 3.82 mill/uL (4.7-6.1); RED CELL DISTRIBUTION WIDTH 13.4 % (11.6-14.6)
[2021-01-26] MEDS: HYDRALAZINE HCL 25MG TABLET PO SCH ×3 (06:31→21:26)
[2021-01-26] MEDS: BLOOD SUGAR DIAGNOSTIC STRIP TEST SCH ×4 (06:32→21:13)
[2021-01-26 06:37] LABS: CHLORIDE 103 mEq/L (98-107)
[2021-01-26 08:00] VITALS: BP 154/85
[2021-01-26] MEDS: METFORMIN HCL 500MG TABLET PO SCH (08:25)
[2021-01-26] MEDS: AMLODIPINE 10MG TABLET PO SCH (08:26)
[2021-01-26] MEDS: ONDANSETRON HCL 4MG/2ML INJ IV PRN ×2 (08:26→21:26)
[2021-01-26] MEDS: INSULIN LISPRO 100 UNITS/ML SUBCUT SCH ×4 (08:33→21:26)
[2021-01-26] MEDS: SODIUM CHLORIDE 0.9% 1,000 ML IV SCH ×2 (08:40→21:26)
[2021-01-26] MEDS: AZITHROMYCIN 500 MG TABLET PO SCH (11:42)
[2021-01-26 12:00] VITALS: BP 132/75
[2021-01-26 16:00] VITALS: BP 126/77
[2021-01-26 20:00] VITALS: BP 134/80
[2021-01-26] MEDS: ENOXAPARIN 40MG/0.4ML SYR SUBCUT SCH (21:00)
[2021-01-26] MEDS: ATORVASTATIN CALCIUM 40MG TABLET PO SCH (21:30)
[2021-01-27] VITALS: BP 145/78
[2021-01-27 04:00] VITALS: BP 156/80
[2021-01-27] MEDS: HYDRALAZINE HCL 25MG TABLET PO SCH ×3 (06:00→22:15)
[2021-01-27] MEDS: BLOOD SUGAR DIAGNOSTIC STRIP TEST SCH ×4 (06:29→21:00)
[2021-01-27 07:15] LABS: BASOPHILS % 0.4 % (0.0-2.0); HEMATOCRIT. 34.1 % (42.0-52.0); HEMOGLOBIN. 11.5 g/dL (14.0-18.0); LYMPHOCYTES % 13.6 % (20.0-50.0); MEAN CORPUSCULAR VOLUME 79.9 fL (80.0-94.0); PLATELET 296 x1000/uL (130-400); RED BLOOD CELL COUNT 4.27 mill/uL (4.7-6.1); RED CELL DISTRIBUTION WIDTH 13.6 % (11.6-14.6)
[2021-01-27 07:31] LABS: CHLORIDE 103 mEq/L (98-107)
[2021-01-27] MEDS: INSULIN LISPRO 100 UNITS/ML SUBCUT SCH ×4 (07:50→22:14)
[2021-01-27 08:00] VITALS: BP 162/87
[2021-01-27] MEDS: AMLODIPINE 10MG TABLET PO SCH (09:00)
[2021-01-27] MEDS: SODIUM CHLORIDE 0.9% 1,000 ML IV SCH (10:25)
[2021-01-27] MEDS: AZITHROMYCIN 500 MG TABLET PO SCH ×2 (11:00→14:40)
[2021-01-27] MEDS: CLONIDINE 0.1MG TABLET PO PRN (11:25)
[2021-01-27 12:00] VITALS: BP 171/88
[2021-01-27 16:00] VITALS: BP 145/78
[2021-01-27 20:00] VITALS: BP 139/79
[2021-01-27] MEDS: ENOXAPARIN 40MG/0.4ML SYR SUBCUT SCH (22:11)
[2021-01-27] MEDS: ATORVASTATIN CALCIUM 40MG TABLET PO SCH (22:11)
[2021-01-28] MEDS: SODIUM CHLORIDE 0.9% 1,000 ML IV SCH ×2 (00:19→13:05)
[2021-01-28 04:00] VITALS: BP 179/86
[2021-01-28] MEDS: BLOOD SUGAR DIAGNOSTIC STRIP TEST SCH ×4 (06:05→21:38)
[2021-01-28] MEDS: HYDRALAZINE HCL 25MG TABLET PO SCH ×3 (06:05→22:00)
[2021-01-28 06:57] LABS: CHLORIDE 106 mEq/L (98-107)
[2021-01-28 06:58] LABS: BASOPHILS % 0.4 % (0.0-2.0); EOSINOPHILS % 1.2 % (0.0-5.0); HEMATOCRIT. 30.6 % (42.0-52.0); HEMOGLOBIN. 10.4 g/dL (14.0-18.0); LYMPHOCYTES % 17.2 % (20.0-50.0); MEAN CORPUSCULAR HEMOGLOBIN 26.9 pg (28.0-32.0); MEAN CORPUSCULAR VOLUME 78.7 fL (80.0-94.0); MONOCYTES % 9.8 % (2.0-8.0); NEUTROPHILS % 71.4 % (40.0-76.0); PLATELET 314 x1000/uL (130-400); RED BLOOD CELL COUNT 3.89 mill/uL (4.7-6.1); RED CELL DISTRIBUTION WIDTH 13.7 % (11.6-14.6)
[2021-01-28] MEDS: INSULIN LISPRO 100 UNITS/ML SUBCUT SCH ×4 (07:50→21:00)
[2021-01-28 08:00] VITALS: BP 164/87
[2021-01-28] MEDS: AMLODIPINE 10MG TABLET PO SCH (09:00)
[2021-01-28] MEDS ORDERED: TRANEXAMIC ACID 1,000 MG in SODIUM CHLORIDE 0.9% 100 ML IV SCH (10:00)
[2021-01-28] MEDS ORDERED: KETOROLAC 30MG/ML VIAL ONE (10:03)
[2021-01-28] MEDS ORDERED: GENTAMICIN SULF 40MG/ML 2ML VIAL ONE (10:03)
[2021-01-28] MEDS ORDERED: EPINEPHRINE 1:1000 1 MG/ML AMP ONE (10:03)
[2021-01-28] MEDS ORDERED: VANCOMYCIN HCL 1 GM/VIAL ONE (10:04)
[2021-01-28] MEDS ORDERED: ROPIVACAINE HCL 10MG/ML 20 ML VIAL EPI ONE (10:04)
[2021-01-28] MEDS ORDERED: MORPHINE SULFATE 10 MG/ML CPJ ONE (10:04)
[2021-01-28] MEDS ORDERED: AZITHROMYCIN 500MG in DEXTROSE 5% WATER 250ML IV NR (10:30)
[2021-01-28] MEDS ORDERED: MIDAZOLAM HCL 2 MG/2 ML VIAL ONE ×2 (12:01→13:29)
[2021-01-28] MEDS ORDERED: FENTANYL CITRATE/PF 50MCG/ML 2ML VIAL ONE ×2 (12:01→13:29)
[2021-01-28] MEDS ORDERED: NEOSTIGMINE METHYLSULFATE 1MG/ML 10 ML VIAL ONE (12:01)
[2021-01-28] MEDS ORDERED: PROPOFOL 200MG/20ML VIAL IV ONE (12:01)
[2021-01-28] MEDS ORDERED: ROCURONIUM BROMIDE 10MG/ML VIAL 5ML IV ONE ×2 (12:01→12:53)
[2021-01-28] MEDS ORDERED: METOCLOPRAMIDE HCL 10MG/2ML VIAL ONE (12:01)
[2021-01-28] MEDS ORDERED: GLYCOPYRROLATE 0.2 MG/ML 2ML VIAL ONE (12:01)
[2021-01-28] MEDS ORDERED: SUCCINYLCHOLINE CHLORIDE 200MG/10ML IV ONE (12:01)
[2021-01-28] MEDS ORDERED: CEFAZOLIN SODIUM 1000MG/VIAL ONE (12:01)
[2021-01-28] MEDS ORDERED: PHENYLEPHRINE HCL 10 MG/ML 1ML (IV VIAL) IV ONE (12:01)
[2021-01-28] MEDS ORDERED: SODIUM CHLORIDE 0.9% 10ML VIAL ONE (12:01)
[2021-01-28] MEDS ORDERED: ONDANSETRON HCL 4MG/2ML INJ ONE (12:01)
[2021-01-28] MEDS ORDERED: CEFAZOLIN 1000MG PREMIX 50 ML IV SCH ×2 (13:30→22:00)
[2021-01-28] MEDS ORDERED: ONDANSETRON HCL 4MG/2ML INJ IV PRN (13:30)
[2021-01-28] MEDS ORDERED: MORPHINE SULFATE 2 MG/ML CPJ (NOT FOR IM USE) IV PRN (13:30)
[2021-01-28] MEDS ORDERED: HYDROCODONE/ACETAMINOPHEN 5/325MG TABLET PO PRN (13:30)
[2021-01-28] MEDS ORDERED: MEPERIDINE HCL/PF 25MG/ML CPJ IV PRN (13:30)
[2021-01-28] MEDS ORDERED: SODIUM CHLORIDE 0.9% 1,000 ML IV ONE (13:30)
[2021-01-28] MEDS ORDERED: HYDROCODONE/ACETAMINOPHEN 10/325MG TABLET PO PRN (13:30)
[2021-01-28] MEDS ORDERED: HYDROMORPHONE HCL/PF 2MG/ML CPJ IV PRN (13:30)
[2021-01-28 14:59] LABS: BG BASE EXCESS -6.5 mmol/L (-2.0-2.0); BG CARBOXYHEMOGLOBIN 0.3 % (0.5-1.5); BG DEOXYHEMOGLOBIN 4.3 % (0.0-5.0); BG HCO3 ACT 18.4 mmol/L (22.0-26.0); BG METHEMOGLOBIN 0.2 % (0.0-1.5); BG OXYGEN SATURATION 95.7 % (92.0-98.5); BG OXYHEMOGLOBIN 95.2 % (94.0-97.0); BG PCO2 34.7 mmHg (35.0-45.0); BG PH 7.343 (7.350-7.450); BG PO2 84.8 mmHg (75.0-100.0); BG SAMPLE SITE RIGHT BRACHIAL; BG TOTAL HEMOGLOBIN 11.3 g/dL (12.0-18.0); BG VENT MODE VENT - AC
[2021-01-28] MEDS ORDERED: CEFTRIAXONE SODIUM 1 G/VIAL IM ONE (18:45)
[2021-01-28] MEDS: CEFTRIAXONE 1,000 MG in DEXTROSE 5% WATER 50 ML IV SCH (18:51)
[2021-01-28] MEDS: ONDANSETRON HCL 4MG/2ML INJ IV PRN (19:35)
[2021-01-28] MEDS: FAMOTIDINE 20MG/2ML VIAL IV SCH (20:23)
[2021-01-28] MEDS: ATORVASTATIN CALCIUM 40MG TABLET PO SCH (21:00)
[2021-01-28] MEDS: ENOXAPARIN 40MG/0.4ML SYR SUBCUT SCH (21:00)
[2021-01-29] MEDS: IPRATROPIUM/ALBUTEROL 0.5-3(2.5)MG/3ML NEB NEB SCH ×5 (00:36→16:27)
[2021-01-29 03:10] LABS: BASOPHILS % 0.4 % (0.0-2.0); CHLORIDE 110 mEq/L (98-107); EOSINOPHILS % 0.7 % (0.0-5.0); HEMATOCRIT. 25.9 % (42.0-52.0); HEMOGLOBIN. 8.8 g/dL (14.0-18.0); LYMPHOCYTES % 9.9 % (20.0-50.0); MEAN CORPUSCULAR VOLUME 79.3 fL (80.0-94.0); MEAN PLATELET VOLUME 7.4 fl (7.4-10.4); MONOCYTES % 9.8 % (2.0-8.0); NEUTROPHILS % 79.2 % (40.0-76.0); PLATELET 303 x1000/uL (130-400); RED BLOOD CELL COUNT 3.27 mill/uL (4.7-6.1); RED CELL DISTRIBUTION WIDTH 13.5 % (11.6-14.6)
[2021-01-29 03:16] LABS: PHOSPHORUS 2.1 mg/dL (2.5-4.9)
[2021-01-29] MEDS ORDERED: SODIUM CHLORIDE 0.9% 1,000 ML IV SCH (05:15)
[2021-01-29] MEDS: SODIUM CHLORIDE 0.9% 1,000 ML IV SCH ×2 (05:30→16:41)
[2021-01-29] MEDS ORDERED: MAGNESIUM 2 G PREMIX 50 ML IV NR (05:30)
[2021-01-29 05:42] LABS: CHLORIDE 110 mEq/L (98-107)
[2021-01-29] MEDS: HYDRALAZINE HCL 25MG TABLET PO SCH ×3 (06:00→21:58)
[2021-01-29] MEDS ORDERED: POTASSIUM CHLORIDE INJ 40 MEQ in DEXT 5% WATER 250 ML IV NR ×2 (06:00→21:00)
[2021-01-29] MEDS: BLOOD SUGAR DIAGNOSTIC STRIP TEST SCH ×4 (07:20→21:57)
[2021-01-29] MEDS: INSULIN LISPRO 100 UNITS/ML SUBCUT SCH ×4 (07:50→22:15)
[2021-01-29] MEDS: AZITHROMYCIN 500 MG in DEXT 5% WATER 250 ML IV SCH (08:53)
[2021-01-29] MEDS: FAMOTIDINE 20MG/2ML VIAL IV SCH (08:53)
[2021-01-29] MEDS: AMLODIPINE 10MG TABLET PO SCH (08:54)
[2021-01-29 09:30] LABS: BG BASE EXCESS -4.5 mmol/L (-2.0-2.0); BG CARBOXYHEMOGLOBIN 0.3 % (0.5-1.5); BG DEOXYHEMOGLOBIN 2.6 % (0.0-5.0); BG HCO3 ACT 19.1 mmol/L (22.0-26.0); BG METHEMOGLOBIN 0.3 % (0.0-1.5); BG OXYGEN SATURATION 97.4 % (92.0-98.5); BG OXYHEMOGLOBIN 96.8 % (94.0-97.0); BG PCO2 30.4 mmHg (35.0-45.0); BG PH 7.415 (7.350-7.450); BG PO2 96.8 mmHg (75.0-100.0); BG SAMPLE SITE RIGHT BRACHIAL; BG TOTAL HEMOGLOBIN 11.9 g/dL (12.0-18.0); BG VENT MODE VENT - AC
[2021-01-29 12:20] LABS: BG BASE EXCESS -5.7 mmol/L (-2.0-2.0); BG CARBOXYHEMOGLOBIN 0.3 % (0.5-1.5); BG DEOXYHEMOGLOBIN 2.3 % (0.0-5.0); BG FRACTION INSPIRED OXYGEN 40; BG HCO3 ACT 16.3 mmol/L (22.0-26.0); BG METHEMOGLOBIN 0.2 % (0.0-1.5); BG OXYGEN SATURATION 97.7 % (92.0-98.5); BG OXYHEMOGLOBIN 97.2 % (94.0-97.0); BG PCO2 21.9 mmHg (35.0-45.0); BG PH 7.489 (7.350-7.450); BG PO2 95.8 mmHg (75.0-100.0); BG SAMPLE SITE LEFT RADIAL; BG TOTAL HEMOGLOBIN 9.6 g/dL (12.0-18.0); BG TOTAL RESPIRATORY RATE 21 b/min; BG VENT MODE VENT - SIMV
[2021-01-29] MEDS ORDERED: METOCLOPRAMIDE HCL 10MG TABLET PO NR (12:45)
[2021-01-29 14:31] LABS: BG BASE EXCESS -5.5 mmol/L (-2.0-2.0); BG CARBOXYHEMOGLOBIN 0.3 % (0.5-1.5); BG DEOXYHEMOGLOBIN 2.4 % (0.0-5.0); BG FRACTION INSPIRED OXYGEN 40; BG HCO3 ACT 17.3 mmol/L (22.0-26.0); BG METHEMOGLOBIN 0.3 % (0.0-1.5); BG OXYGEN SATURATION 97.6 % (92.0-98.5); BG PCO2 25.2 mmHg (35.0-45.0); BG PH 7.454 (7.350-7.450); BG PO2 102.5 mmHg (75.0-100.0); BG SAMPLE SITE LEFT BRACHIAL; BG TOTAL HEMOGLOBIN 9.4 g/dL (12.0-18.0); BG TOTAL RESPIRATORY RATE 23 b/min; BG VENT MODE VENT - CPAP
[2021-01-29] MEDS ORDERED: PANTOPRAZOLE SODIUM 40 MG/VIAL IV SCH (17:30)
[2021-01-29 18:52] LABS: BASOPHILS % 0.5 % (0.0-2.0); EOSINOPHILS % 0.3 % (0.0-5.0); HEMATOCRIT. 23.3 % (42.0-52.0); HEMOGLOBIN. 8.4 g/dL (14.0-18.0); MEAN CORPUSCULAR VOLUME 77.7 fL (80.0-94.0); MEAN PLATELET VOLUME 7.5 fl (7.4-10.4); MONOCYTES % 12.1 % (2.0-8.0); NEUTROPHILS % 78.1 % (40.0-76.0); PLATELET 309 x1000/uL (130-400); RED CELL DISTRIBUTION WIDTH 13.7 % (11.6-14.6)
[2021-01-29 18:59] LABS: CHLORIDE 111 mEq/L (98-107)
[2021-01-29 19:05] LABS: PHOSPHORUS 1.5 mg/dL (2.5-4.9)
[2021-01-29] MEDS: CEFTRIAXONE 1,000 MG in DEXTROSE 5% WATER 50 ML IV SCH (19:11)
[2021-01-29 20:05] VITALS: BP 159/85
[2021-01-29] MEDS: ATORVASTATIN CALCIUM 40MG TABLET PO SCH (21:58)
[2021-01-29] MEDS: PANTOPRAZOLE SODIUM 40 MG/VIAL IV SCH (21:59)
[2021-01-29 22:00] VITALS: BP 167/79
[2021-01-30] VITALS (12 sets, daily range): BP systolic 133–166; BP diastolic 71–85
[2021-01-30] MEDS: IPRATROPIUM/ALBUTEROL 0.5-3(2.5)MG/3ML NEB NEB SCH ×5 (00:56→16:16)
[2021-01-30] MEDS: SODIUM CHLORIDE 0.9% 1,000 ML IV SCH ×2 (06:23→22:53)
[2021-01-30] MEDS: HYDRALAZINE HCL 25MG TABLET PO SCH ×3 (06:23→21:06)
[2021-01-30] MEDS: BLOOD SUGAR DIAGNOSTIC STRIP TEST SCH ×4 (06:23→21:06)
[2021-01-30 06:29] LABS: BASOPHILS % 0.3 % (0.0-2.0); EOSINOPHILS % 1.4 % (0.0-5.0); HEMATOCRIT. 25.8 % (42.0-52.0); HEMOGLOBIN. 8.8 g/dL (14.0-18.0); LYMPHOCYTES % 10.5 % (20.0-50.0); MEAN CORPUSCULAR HEMOGLOBIN 27.1 pg (28.0-32.0); MEAN CORPUSCULAR VOLUME 79.4 fL (80.0-94.0); MEAN PLATELET VOLUME 7.5 fl (7.4-10.4); NEUTROPHILS % 76.8 % (40.0-76.0); PLATELET 325 x1000/uL (130-400); RED BLOOD CELL COUNT 3.25 mill/uL (4.7-6.1); RED CELL DISTRIBUTION WIDTH 13.7 % (11.6-14.6)
[2021-01-30 07:09] LABS: CHLORIDE 110 mEq/L (98-107)
[2021-01-30] MEDS: INSULIN LISPRO 100 UNITS/ML SUBCUT SCH ×4 (07:20→21:11)
[2021-01-30] MEDS: PANTOPRAZOLE SODIUM 40 MG/VIAL IV SCH (08:02)
[2021-01-30] MEDS: AZITHROMYCIN 500 MG in DEXT 5% WATER 250 ML IV SCH (08:02)
[2021-01-30] MEDS: AMLODIPINE 10MG TABLET PO SCH (08:02)
[2021-01-30 14:48] LABS: TOTAL IRON BINDING CAPACITY 115 ug/dL (250-450)
[2021-01-30 17:44] LABS: CLARITY URINE CLEAR (CLEAR); COLOR URINE YELLOW (YELLOW); KETONES URINE 2+ (NEGATIVE); LEUKOCYTE ESTERASE URINE NEGATIVE (NEGATIVE); NITRITE URINE NEGATIVE (NEGATIVE); OCCULT BLOOD URINE 1+ (NEGATIVE); PROTEIN URINE 3+ (NEGATIVE); SPECIFIC GRAVITY URINE 1.021 (1.005-1.030); UROBILINOGEN URINE 0.2 E.U./dL (0.2-1.0)
[2021-01-30] MEDS: CEFTRIAXONE 1,000 MG in DEXTROSE 5% WATER 50 ML IV SCH (18:14)
[2021-01-30] MEDS ORDERED: FAMOTIDINE 20MG/2ML VIAL IV SCH (21:00)
[2021-01-30] MEDS: ATORVASTATIN CALCIUM 40MG TABLET PO SCH (21:06)
[2021-01-31] VITALS (10 sets, daily range): BP systolic 135–174; BP diastolic 78–89
[2021-01-31] MEDS: PANTOPRAZOLE 40MG DR TABLET PO SCH (06:31)
[2021-01-31] MEDS: HYDRALAZINE HCL 25MG TABLET PO SCH ×3 (06:31→21:05)
[2021-01-31] MEDS: BLOOD SUGAR DIAGNOSTIC STRIP TEST SCH ×4 (06:31→20:25)
[2021-01-31 07:37] LABS: BASOPHILS % 0.6 % (0.0-2.0); EOSINOPHILS % 1.9 % (0.0-5.0); HEMATOCRIT. 25.5 % (42.0-52.0); HEMOGLOBIN. 8.6 g/dL (14.0-18.0); LYMPHOCYTES % 9.9 % (20.0-50.0); MEAN CORPUSCULAR HEMOGLOBIN 26.8 pg (28.0-32.0); MEAN CORPUSCULAR VOLUME 79.9 fL (80.0-94.0); MONOCYTES % 9.1 % (2.0-8.0); NEUTROPHILS % 78.5 % (40.0-76.0); PLATELET 362 x1000/uL (130-400); RED CELL DISTRIBUTION WIDTH 13.5 % (11.6-14.6)
[2021-01-31] MEDS: AZITHROMYCIN 500 MG in DEXT 5% WATER 250 ML IV SCH (08:03)
[2021-01-31] MEDS: AMLODIPINE 10MG TABLET PO SCH (08:03)
[2021-01-31] MEDS: INSULIN LISPRO 100 UNITS/ML SUBCUT SCH ×4 (08:03→20:25)
[2021-01-31 08:16] LABS: CHLORIDE 107 mEq/L (98-107)
[2021-01-31 08:29] LABS: T4 FREE 1.49 ng/dL (0.76-1.46)
[2021-01-31] MEDS: IPRATROPIUM/ALBUTEROL 0.5-3(2.5)MG/3ML NEB NEB SCH ×4 (08:43→20:48)
[2021-01-31] MEDS ORDERED: POTASSIUM CHLORIDE 20MEQ TABLET SR PO SCH (11:00)
[2021-01-31] MEDS: SODIUM CHLORIDE 0.9% 1,000 ML IV SCH ×2 (14:46→20:25)
[2021-01-31] MEDS: CHLORPROMAZINE HCL 25 MG TABLET PO SCH (16:30)
[2021-01-31] MEDS: FERROUS SULFATE 325MG TABLET PO SCH (16:30)
[2021-01-31] MEDS: CEFTRIAXONE 1,000 MG in DEXTROSE 5% WATER 50 ML IV SCH (18:00)
[2021-01-31 19:01] LABS: FOLIC ACID (FOLATE) SERUM 14.2 ng/mL (>5.38)
[2021-01-31] MEDS: ATORVASTATIN CALCIUM 40MG TABLET PO SCH (20:24)
[2021-02-01] VITALS (10 sets, daily range): BP systolic 126–154; BP diastolic 71–89
[2021-02-01] MEDS: IPRATROPIUM/ALBUTEROL 0.5-3(2.5)MG/3ML NEB NEB SCH ×5 (00:41→20:13)
[2021-02-01] MEDS: HYDRALAZINE HCL 25MG TABLET PO SCH ×3 (05:57→21:30)
[2021-02-01] MEDS: PANTOPRAZOLE 40MG DR TABLET PO SCH (05:57)
[2021-02-01] MEDS: BLOOD SUGAR DIAGNOSTIC STRIP TEST SCH ×4 (05:57→21:30)
[2021-02-01 07:29] LABS: BASOPHILS % 0.5 % (0.0-2.0); EOSINOPHILS % 2.2 % (0.0-5.0); HEMATOCRIT. 24.9 % (42.0-52.0); HEMOGLOBIN. 8.6 g/dL (14.0-18.0); LYMPHOCYTES % 11.1 % (20.0-50.0); MEAN CORPUSCULAR VOLUME 78.4 fL (80.0-94.0); MEAN PLATELET VOLUME 7.5 fl (7.4-10.4); MONOCYTES % 8.5 % (2.0-8.0); NEUTROPHILS % 77.7 % (40.0-76.0); PLATELET 374 x1000/uL (130-400); RED BLOOD CELL COUNT 3.17 mill/uL (4.7-6.1); RED CELL DISTRIBUTION WIDTH 13.6 % (11.6-14.6)
[2021-02-01 07:30] LABS: CHLORIDE 107 mEq/L (98-107)
[2021-02-01] MEDS: FERROUS SULFATE 325MG TABLET PO SCH ×3 (08:05→16:24)
[2021-02-01] MEDS: AZITHROMYCIN 500 MG in DEXT 5% WATER 250 ML IV SCH (08:05)
[2021-02-01] MEDS: CHLORPROMAZINE HCL 25 MG TABLET PO SCH ×3 (08:05→16:24)
[2021-02-01] MEDS: AMLODIPINE 10MG TABLET PO SCH (08:05)
[2021-02-01] MEDS: ASCORBIC ACID 500 MG TABLET PO SCH (08:05)
[2021-02-01] MEDS: INSULIN LISPRO 100 UNITS/ML SUBCUT SCH ×4 (08:06→21:42)
[2021-02-01] MEDS: SODIUM CHLORIDE 0.9% 1,000 ML IV SCH (10:25)
[2021-02-01] MEDS ORDERED: POTASSIUM CHLORIDE 20MEQ TABLET SR PO SCH (14:00)
[2021-02-01] MEDS: CYANOCOBALAMIN 1000MCG/ML VIAL IM SCH (14:00)
[2021-02-01] MEDS: CEFTRIAXONE 1,000 MG in DEXTROSE 5% WATER 50 ML IV SCH (18:06)
[2021-02-01] MEDS: ATORVASTATIN CALCIUM 40MG TABLET PO SCH (21:29)
[2021-02-02] VITALS: BP 131/71
[2021-02-02] MEDS: IPRATROPIUM/ALBUTEROL 0.5-3(2.5)MG/3ML NEB NEB SCH ×3 (00:30→09:52)
[2021-02-02] MEDS: SODIUM CHLORIDE 0.9% 1,000 ML IV SCH ×2 (01:42→13:08)
[2021-02-02 04:00] VITALS: BP 142/78
[2021-02-02] MEDS: PANTOPRAZOLE 40MG DR TABLET PO SCH (06:22)
[2021-02-02] MEDS: HYDRALAZINE HCL 25MG TABLET PO SCH ×3 (06:22→21:09)
[2021-02-02] MEDS: FERROUS SULFATE 325MG TABLET PO SCH ×3 (06:22→18:21)
[2021-02-02] MEDS: BLOOD SUGAR DIAGNOSTIC STRIP TEST SCH ×4 (06:27→21:09)
[2021-02-02 07:26] LABS: CHLORIDE 109 mEq/L (98-107)
[2021-02-02 07:45] LABS: BASOPHILS % 0.2 % (0.0-2.0); EOSINOPHILS % 2.3 % (0.0-5.0); HEMATOCRIT. 22.8 % (42.0-52.0); HEMOGLOBIN. 7.7 g/dL (14.0-18.0); LYMPHOCYTES % 10.3 % (20.0-50.0); MEAN CORPUSCULAR HEMOGLOBIN 26.9 pg (28.0-32.0); MEAN CORPUSCULAR VOLUME 79.4 fL (80.0-94.0); MEAN PLATELET VOLUME 7.4 fl (7.4-10.4); MONOCYTES % 8.2 % (2.0-8.0); PLATELET 375 x1000/uL (130-400); RED BLOOD CELL COUNT 2.87 mill/uL (4.7-6.1); RED CELL DISTRIBUTION WIDTH 13.7 % (11.6-14.6)
[2021-02-02 08:00] VITALS: BP 146/78
[2021-02-02] MEDS: CYANOCOBALAMIN 1000MCG/ML VIAL IM SCH (08:45)
[2021-02-02] MEDS: ASCORBIC ACID 500 MG TABLET PO SCH (08:46)
[2021-02-02] MEDS: AMLODIPINE 10MG TABLET PO SCH (08:46)
[2021-02-02] MEDS: INSULIN LISPRO 100 UNITS/ML SUBCUT SCH ×4 (08:52→21:15)
[2021-02-02] MEDS: CHLORPROMAZINE HCL 25 MG TABLET PO SCH ×3 (10:36→18:21)
[2021-02-02 12:00] VITALS: BP 142/76
[2021-02-02] MEDS ORDERED: ASPIRIN 81MG TABLET PO SCH (13:15)
[2021-02-02] MEDS ORDERED: CLOPIDOGREL 75MG TABLET PO SCH (13:15)
[2021-02-02] MEDS ORDERED: IPRATROPIUM/ALBUTEROL 0.5-3(2.5)MG/3ML NEB NEB PRN (13:30)
[2021-02-02] MEDS: INSULIN GLARGINE UD 100 UNITS/ML SYR SUBCUT SCH ×2 (15:25→22:14)
[2021-02-02 16:00] VITALS: BP 149/79
[2021-02-02] MEDS ORDERED: PANT40TA51 PO (17:29)
[2021-02-02] MEDS ORDERED: TH25 PO (17:29)
[2021-02-02] MEDS ORDERED: ASCO500T20 PO (17:29)
[2021-02-02] MEDS ORDERED: LANTUSUD SUBCUT (17:29)
[2021-02-02] MEDS: CEFTRIAXONE 1,000 MG in DEXTROSE 5% WATER 50 ML IV SCH (18:22)
[2021-02-02 20:00] VITALS: BP 126/69
[2021-02-02] MEDS: ATORVASTATIN CALCIUM 40MG TABLET PO SCH (21:09)
== END 2021-02-02 23:14 | DRG 323 ==
LOC: ER 17:40 → 6EST 22:21 → ENRESERV 01-23 07:13 → 6EST 01-23 10:04 → 3WST 01-29 20:28 → 6EST 02-01 23:46
PROVIDERS: ADMIT Internal Medicine; ATTEND Internal Medicine
PROC: 0SRR0JA Replacement of Right Hip Joint, Femoral Surface with Synthetic Substitute, Uncemented, Open Approach (ICD-10-PCS; principal; 2021-01-28)
PROC: 5A1945Z Respiratory Ventilation, 24-96 Consecutive Hours (ICD-10-PCS; 2021-01-28)
PROC: 0BH17EZ Insertion of Endotracheal Airway into Trachea, Via Natural or Artificial Opening (ICD-10-PCS; 2021-01-28)
PROC: 4A10X4Z Monitoring of Central Nervous Electrical Activity, External Approach (ICD-10-PCS; 2021-02-02)
DX: S72.091A Other fracture of head and neck of right femur, initial encounter for closed fracture (principal); J69.0 Pneumonitis due to inhalation of food and vomit; E43 Unspecified severe protein-calorie malnutrition; K29.71 Gastritis, unspecified, with bleeding; R18.8 Other ascites; Z99.11 Dependence on respirator [ventilator] status; E11.9 Type 2 diabetes mellitus without complications; D50.9 Iron deficiency anemia, unspecified; R47.01 Aphasia; I69.351 Hemiplegia and hemiparesis following cerebral infarction affecting right dominant side; E78.00 Pure hypercholesterolemia, unspecified; K29.81 Duodenitis with bleeding; R53.81 Other malaise; E78.5 Hyperlipidemia, unspecified; I10 Essential (primary) hypertension; W05.0XXA Fall from non-moving wheelchair, initial encounter; I16.0 Hypertensive urgency; Z20.822 Contact with and (suspected) exposure to COVID-19; Z86.16 Personal history of COVID-19; Z99.3 Dependence on wheelchair; Y93.89 Activity, other specified; Y99.8 Other external cause status; Y92.098 Other place in other non-institutional residence as the place of occurrence of the external cause; Z79.02 Long term (current) use of antithrombotics/antiplatelets; Z79.84 Long term (current) use of oral hypoglycemic drugs; Z79.899 Other long term (current) drug therapy; Z79.82 Long term (current) use of aspirin; Z89.421 Acquired absence of other right toe(s); Z68.29 Body mass index [BMI] 29.0-29.9, adult; R91.8 Other nonspecific abnormal finding of lung field
CPT/HCPCS: 36415; 36600; 71045; 72170; 73502; 74176; 76705; 80048; 80053; 80061; 81003; 82375; 82550; 82553; 82607; 82728; 82746; 82805; 82962; 83036; 83540; 83550; 83605; 83735; 83880; 84100; 84439; 84443; 84484; 85025; 85044; 86850; 86900; 87426; 88305; 88311; 92610; 93005; 93306; 93970; 94003; 94640; 97162; 97530; 99285; C1776; C9113; J0330; J0456; J0690; J0696; J1100; J1580; J1650; J1815; J1885; J2175; J2250; J2270; J2370; J2405; J2704; J2710; J2765; J2795; J3010; J3370; J3420; J3475; J3480; J3490; J7040; J7050; J7060; J8597; Q0161

== ENCOUNTER 2021-02-05 11:50 | Inpatient (IN) | payer MEDICAID ==
[~2021-02-05] VITALS: Ht 157.5 cm; Wt 69.9 kg
[~2021-02-05 11:50] MED LIST changes: +ASCO500T20 PO; +LANTUSUD SUBCUT; +PANT40TA51 PO; +TH25 PO
[2021-02-05] MEDS ORDERED: PANTOPRAZOLE SODIUM 40 MG/VIAL IV ONE (14:00)
[2021-02-05] MEDS ORDERED: ONDANSETRON HCL 4MG/2ML INJ IV ONE (14:00)
[2021-02-05 14:28] LABS: BASOPHILS % 0.5 % (0.0-2.0); LYMPHOCYTES % 8.7 % (20.0-50.0); MEAN CORPUSCULAR HEMOGLOBIN 27.4 pg (28.0-32.0); MEAN CORPUSCULAR VOLUME 78.2 fL (80.0-94.0); MEAN PLATELET VOLUME 6.8 fl (7.4-10.4); MONOCYTES % 7.9 % (2.0-8.0); NEUTROPHILS % 81.9 % (40.0-76.0); PLATELET 463 x1000/uL (130-400); RED BLOOD CELL COUNT 2.36 mill/uL (4.7-6.1); RED CELL DISTRIBUTION WIDTH 14.2 % (11.6-14.6)
[2021-02-05 14:32] LABS: HEMOGLOBIN. 6.5 g/dL (14.0-18.0)
[2021-02-05 14:33] LABS: HEMATOCRIT. 18.4 % (42.0-52.0)
[2021-02-05 14:37] LABS: CHLORIDE 107 mEq/L (98-107)
[2021-02-05 14:40] LABS: PROTHROMBIN TIME 10.4 sec (9.6-11.0)
[2021-02-05 15:46] LABS: CLARITY URINE CLEAR (CLEAR); COLOR URINE YELLOW (YELLOW); KETONES URINE NEGATIVE (NEGATIVE); LEUKOCYTE ESTERASE URINE 1+ (NEGATIVE); NITRITE URINE NEGATIVE (NEGATIVE); OCCULT BLOOD URINE TRACE (NEGATIVE); PH URINE 6.5 (4.5-8.0); PROTEIN URINE 3+ (NEGATIVE); SPECIFIC GRAVITY URINE 1.018 (1.005-1.030); UROBILINOGEN URINE 0.2 E.U./dL (0.2-1.0)
[2021-02-06] MEDS ORDERED: DEXTROSE 50% WATER 50ML SYRINGE IV PRN (10:00)
[2021-02-06 11:00] VITALS: BP 145/80
[2021-02-06] MEDS: PANTOPRAZOLE SODIUM 40 MG/VIAL IV SCH ×2 (11:02→21:59)
[2021-02-06] MEDS: DOCUSATE SODIUM 100MG CAPSULE PO SCH ×2 (11:02→17:10)
[2021-02-06 11:28] LABS: HEMATOCRIT 22.4 % (42.0-52.0); HEMOGLOBIN 7.7 g/dL (14.0-18.0)
[2021-02-06 12:00] VITALS: BP 153/90
[2021-02-06] MEDS: FERROUS SULFATE 325MG TABLET PO SCH ×2 (12:30→17:10)
[2021-02-06] MEDS: BLOOD SUGAR DIAGNOSTIC STRIP TEST SCH ×3 (12:35→21:00)
[2021-02-06] MEDS: INSULIN LISPRO 100 UNITS/ML SUBCUT SCH ×3 (12:35→22:01)
[2021-02-06 16:00] VITALS: BP 142/83
[2021-02-06 20:00] VITALS: BP 177/84
[2021-02-06] MEDS ORDERED: CLONIDINE 0.1MG TABLET PO PRN (20:45)
[2021-02-06] MEDS ORDERED: ATORVASTATIN CALCIUM 40MG TABLET PO SCH (21:00)
[2021-02-06 22:47] VITALS: BP 141/80
[2021-02-07] VITALS (10 sets, daily range): BP systolic 127–172; BP diastolic 73–87
[2021-02-07] MEDS ORDERED: SODIUM CHLORIDE 0.9% 100 ML IV ONE (04:15)
[2021-02-07] MEDS ORDERED: SODIUM CHLORIDE 0.9% 1,000 ML IV SCH (04:45)
[2021-02-07] MEDS: SODIUM CHLORIDE 0.9% 1,000 ML IV SCH ×2 (04:56→14:45)
[2021-02-07] MEDS: BLOOD SUGAR DIAGNOSTIC STRIP TEST SCH ×3 (06:35→17:22)
[2021-02-07 06:50] LABS: BASOPHILS % 0.5 % (0.0-2.0); EOSINOPHILS % 3.1 % (0.0-5.0); HEMATOCRIT. 23.8 % (42.0-52.0); LYMPHOCYTES % 20.1 % (20.0-50.0); MEAN CORPUSCULAR HEMOGLOBIN 26.8 pg (28.0-32.0); MEAN PLATELET VOLUME 6.7 fl (7.4-10.4); MONOCYTES % 12.5 % (2.0-8.0); NEUTROPHILS % 63.8 % (40.0-76.0); PLATELET 494 x1000/uL (130-400); RED BLOOD CELL COUNT 2.98 mill/uL (4.7-6.1)
[2021-02-07 06:52] LABS: PROTHROMBIN TIME 10.6 sec (9.6-11.0)
[2021-02-07 07:46] LABS: CHLORIDE 105 mEq/L (98-107)
[2021-02-07 08:03] LABS: FOLIC ACID (FOLATE) SERUM 8.9 ng/mL (>5.38)
[2021-02-07 08:05] LABS: TOTAL IRON BINDING CAPACITY 143 ug/dL (250-450)
[2021-02-07] MEDS: DOCUSATE SODIUM 100MG CAPSULE PO SCH ×2 (09:09→17:32)
[2021-02-07] MEDS: FERROUS SULFATE 325MG TABLET PO SCH ×3 (09:09→17:32)
[2021-02-07] MEDS: PANTOPRAZOLE SODIUM 40 MG/VIAL IV SCH (09:09)
[2021-02-07] MEDS ORDERED: PROPOFOL 200MG/20ML VIAL IV ONE (10:47)
[2021-02-07] MEDS ORDERED: LIDOCAINE HCL/PF 1% 10 MG/ML 5ML VIAL ONE (10:48)
[2021-02-07] MEDS ORDERED: POTASSIUM CHLORIDE 20MEQ TABLET SR PO NR (11:00)
[2021-02-07] MEDS: INSULIN LISPRO 100 UNITS/ML SUBCUT SCH ×2 (12:50→17:33)
[2021-02-07 13:04] LABS: HEMATOCRIT 26.1 % (42.0-52.0); HEMOGLOBIN 9.3 g/dL (14.0-18.0)
[2021-02-07] MEDS ORDERED: SUCRALFATE 1G TABLET PO SCH (17:20)
[2021-02-07] MEDS ORDERED: METOCLOPRAMIDE HCL 10MG/2ML VIAL IV SCH (17:20)
[2021-02-07] MEDS ORDERED: PANTOPRAZOLE SODIUM 40 MG/VIAL IV SCH (18:00)
== END 2021-02-07 20:15 | DRG 241 ==
LOC: ER 11:50 → MICUSO 16:03 → 6WST 02-06 07:43
PROVIDERS: ADMIT Internal Medicine; ATTEND Internal Medicine
PROC: 30233N1 Transfusion of Nonautologous Red Blood Cells into Peripheral Vein, Percutaneous Approach (ICD-10-PCS; 2021-02-05)
PROC: 0DB78ZX Excision of Stomach, Pylorus, Via Natural or Artificial Opening Endoscopic, Diagnostic (ICD-10-PCS; principal; 2021-02-07)
DX: K29.71 Gastritis, unspecified, with bleeding (principal); E43 Unspecified severe protein-calorie malnutrition; K22.11 Ulcer of esophagus with bleeding; I82.412 Acute embolism and thrombosis of left femoral vein; D50.9 Iron deficiency anemia, unspecified; E11.9 Type 2 diabetes mellitus without complications; E78.00 Pure hypercholesterolemia, unspecified; Z20.822 Contact with and (suspected) exposure to COVID-19; X58.XXXA Exposure to other specified factors, initial encounter; I10 Essential (primary) hypertension; Z79.4 Long term (current) use of insulin; Z86.73 Personal history of transient ischemic attack (TIA), and cerebral infarction without residual deficits; Z79.899 Other long term (current) drug therapy; Z68.28 Body mass index [BMI] 28.0-28.9, adult; Y93.89 Activity, other specified; Y92.89 Other specified places as the place of occurrence of the external cause; Y99.8 Other external cause status; Z98.890 Other specified postprocedural states
CPT/HCPCS: 36415; 71045; 76700; 80053; 81003; 82607; 82728; 82746; 82962; 83540; 83550; 85014; 85018; 85025; 85044; 86850; 86900; 86920; 87426; 88305; 88312; 88313; 93005; 93970; 99285; C9113; J1815; J2405; J2704; J2765; J3490; J7030; P9016